=== PATIENT | female | born 1995 | race African-American/Black ===

== ENCOUNTER 2018-06-25 19:19 | Emergency (ER) | payer OTHER ==
[~2018-06-25] VITALS: Ht 147.3 cm; Wt 44.5 kg
[2018-06-25 19:55] LABS: ABSOLUTE BASOPHILS 0.1 thou/uL (0.0-0.2); ABSOLUTE EOSINOPHILS 0.1 thou/uL (0.0-0.7); ABSOLUTE LYMPHOCYTES 1.4 thou/uL (0.8-5.3); ABSOLUTE MONOCYTES 0.6 thou/uL (0.0-1.2); ABSOLUTE NEUTROPHILS 9.7 thou/uL (1.6-8.1); BASOPHILS 1.1 %; EOSINOPHILS 0.6 %; HEMATOCRIT 33.7 % (37.0-47.0); HEMOGLOBIN 10.9 gm/dL (12.0-15.0); LYMPHOCYTES 12.1 %; MCH 26.8 pg (26.0-34.0); MCHC 32.4 g/dL (28.0-37.0); MCV 82.8 fL (80.0-100.0); MONOCYTES 4.6 %; MPV 7.7 fl. (7.2-11.1); NUCLEATED RBCS 0 /100WBC; PLATELET COUNT* 419 thou/uL (150-400); POLYS 81.6 %; RBC 4.07 mil/uL (4.20-5.00); RDW-CV 13.3 % (10.5-14.5); WBC 11.9 thou/uL (4.0-11.0)
[2018-06-25 20:02] LABS: CALCIUM 9.3 mg/dL (8.5-10.1); CREATININE 0.9 mg/dL (0.6-1.3); POTASSIUM 3.2 mmol/L (3.5-5.1)
[2018-06-25 20:42] LABS: URINE BLOOD 2+ (Negative); URINE CLARITY CLOUDY; URINE COLOR YELLOW; URINE GLUCOSE-RANDOM NEGATIVE (Negative); URINE KETONES 2+ (Negative); URINE PROTEIN 1+ (Negative); URINE SPECIFIC GRAVITY >= 1.030 (1.005-1.030)
[2018-06-25 20:47] LABS: URINE BILIRUBIN 1+ (Negative); URINE LEUKOCYTES-REFLEX 2+ (Negative); URINE NITRITE-REFLEX POSITIVE (Negative)
[2018-06-25 20:48] LABS: ICTOTEST (BILI CONFIRMATORY) Negative (Negative)
[2018-06-25 21:01] LABS: MUCUS >6 Heavy strn/LPF (None Seen); SQUAMOUS >10 Many /LPF (0-3)
[2018-06-25 21:02] LABS: BACTERIA-REFLEX >30 Many /HPF (None Seen); CRYSTALS None Seen /LPF (None Seen)
[2018-06-25 21:03] LABS: HYALINE CASTS 0-3 Few /LPF (None Seen); URINE RBC 3-10 Few /HPF (0-2)
[2018-06-25 21:30] VITALS: BP 113/93
[2018-06-25] MEDS ORDERED: BACTRIM DS TAB1 EACH PO (21:32)
--- NOTE | 2018-06-26 09:12 | EKG ---
[place] [address] ELECTROCARDIOGRAM REPORT Name: ZULEYKA TOLENTINO Room: [facility]#: [id number] Admission: 06/25/18 Attend Phys: Discharge: 06/25/18 Date of : [birth year] Report #: [id number] THIS REPORT FOR: //name// [facility] ED Test Date: 2018-06-25 Test Time: 19:30:47 Pat Name: ZULEYKA TOLENTINO Department: Room: Gender: F [employer] Set Up Operator: Anni PALAFOX : 1995 Requested By: Martha Webb Order Number: [id number] MD: Jeovany Snow Measurements Intervals [place] Rate: 86 P: 66 [place]: 143 QRS: 71 QRSD: 82 T: 40 QT: 349 QTc: 418 Interpretive Statements Sinus rhythm RSR' in V1 or V2, probably normal variant ST elev, probable normal early repol pattern No previous ECG available for comparison Electronically Signed On 06-26-2018 9:12:45 CDT by Jeovany Snow [email or web address] <ELECTRONICALLY SIGNED> By: Jeovany Snow MD, [facility] 06/26/1812 29 29 Jeovany Snow MD, FACC /EPI
== END 2018-06-25 22:16 | disposition home or self-care (01) ==
LOC: M.ERS 19:19
PROVIDERS: Emergency Medicine
DX: N39.0 Urinary tract infection, site not specified (principal)